=== PATIENT | female | born 1995 | race Two or more races ===

== ENCOUNTER 2021-11-29 15:00 | Outpatient (CLI) | payer OTHER | END 2021-11-29 16:40 | disposition home or self-care (01) | LOC: PRENATAL 15:00 | PROVIDERS: ATTEND Obstetrics & Gynecology Maternal & Fetal Medicine | DX: O35.0XX0 Maternal care for (suspected) central nervous system malformation in fetus, not applicable or unspecified (principal); O35.3XX0 Maternal care for (suspected) damage to fetus from viral disease in mother, not applicable or unspecified; Z3A.26 26 weeks gestation of pregnancy ==

== ENCOUNTER 2021-12-19 14:30 | Inpatient (IN) | payer OTHER ==
[~2021-12-19] VITALS: Ht 157.5 cm; Wt 2.7 kg
[2022-01-02] MEDS ORDERED: PRENATAL TABLE1 EAC1 PO (08:22)
== END 2022-01-05 13:10 | disposition home or self-care (01) | DRG 788 ==
LOC: LDR 01-02 06:39 → OB/GYN 01-03 16:31
PROVIDERS: ADMIT Obstetrics & Gynecology; ATTEND Obstetrics & Gynecology
PROC: 10D00Z1 Extraction of Products of Conception, Low, Open Approach (ICD-10-PCS; principal; 2022-01-02)
PROC: 4A1HXCZ Monitoring of Products of Conception, Cardiac Rate, External Approach (ICD-10-PCS; 2022-01-02)
DX: O62.0 Primary inadequate contractions (principal); O33.8 Maternal care for disproportion of other origin; Z3A.39 39 weeks gestation of pregnancy; Z37.0 Single live birth; Z20.822 Contact with and (suspected) exposure to COVID-19